=== PATIENT | female | born 1955 | race Caucasian/White ===

== ENCOUNTER 2017-03-13 12:05 | Inpatient (IN) | payer OTHER, MEDICAID ==
[~2017-03-13] VITALS: Ht 157.5 cm; Wt 77.4 kg
[2017-03-13 13:25] LABS: Basophils # (auto) 0.1 uL; Basophils % (auto) 0.5 % (0.0-2.0); CONDITION Y; Eosinophils # (auto) 0 uL; Hematocrit 41.3 % (36.0-46.0); Hemoglobin 14.2 g/dL (12.2-16.2); Lymphocytes # (auto) 1.2 uL; Lymphocytes % (auto) 7.9 % (10.0-50.0); Mean Corpuscular Hemoglobin 32.9 pg (28.0-32.0); Mean Corpuscular Hgb Conc. 34.3 g/dL (32.0-36.0); Mean Corpuscular Volume 95.8 fL (80.0-100.0); Mean Platelet Volume 8.8 fL (7.4-10.4); Monocytes # (auto) 0.6 uL; Monocytes % (auto) 3.8 % (0.0-12.0); Neutrophils # (auto) 13.4 uL; Neutrophils % (auto) 87.8 % (37.0-80.0); Platelet Count (auto) 245 10^3/uL (140-450); Red Cell Distribution Width 13.7 % (11.6-16.0); White Blood Cell 15.3 10^3/uL (4.4-10.8)
[2017-03-13] MEDS ORDERED: ACETAMINOPHEN 325 MG TAB PO PRN (13:30)
[2017-03-13] MEDS ORDERED: MORPHINE SULF INJ 2 MG/ML SYRINGE 1ML IV PRN (13:30)
[2017-03-13] MEDS ORDERED: ONDANSETRON HCL 4 MG/2 ML VIAL IV PRN (13:30)
[2017-03-13] MEDS ORDERED: ALBUTEROL SULF 2.5 MG/0.5ML(0.5%) NEB SOLN NEB PRN (13:30)
[2017-03-13] MEDS ORDERED: IPRATROPIUM BROM 0.5 MG/2.5ML INH SOL NEB PRN (13:30)
[2017-03-13] MEDS ORDERED: NITROGLYCERIN 0.4 MG SL TAB SL PRN (13:30)
[2017-03-13 13:46] LABS: Albumin 3.1 g/dL (3.4-5.0); Anion Gap 7 (5-15); Aspartate Aminotransferase 9 U/L (15-37); BUN/Creatinine Ratio 15.9; Blood Urea Nitrogen 10 mg/dL (7-18); Calcium 8.3 mg/dL (8.5-10.1); Carbon Dioxide 28 mmol/L (21-32); Chloride 108 mmol/L (98-107); GFR African American 124 mL/min; GFR Non-African American 102 mL/min; Glucose 83 mg/dL (74-106); Potassium 4.1 mmol/L (3.5-5.1); Sodium 143 mmol/L (136-145)
[2017-03-13 13:50] LABS: Alkaline Phosphatase 105 U/L (45-117); Bilirubin, Total 0.4 mg/dL (0.2-1.0); Total Protein 6.6 g/dL (6.4-8.2)
[2017-03-13 14:06] LABS: INR 0.89 (0.9-1.15); Partial Thromboplastin Time 22.1 sec (22.64-33.71); Prothrombin Time 9.7 sec (9.37-12.3)
[2017-03-13] MEDS: ENOXAPARIN SOD 100 MG/1 ML SYRINGE SC SCH ×2 (14:18→21:32)
[2017-03-13] MEDS ORDERED: BACL20TA PO (14:44)
[2017-03-13] MEDS ORDERED: TIZA4CAP5 PO (14:44)
[2017-03-13] MEDS ORDERED: PRE5T PO (14:44)
[2017-03-13] MEDS ORDERED: OXYB15TA12 PO (14:44)
[2017-03-13] MEDS ORDERED: NAPR-223 PO (14:44)
[2017-03-13] MEDS ORDERED: TRAM50TA2 PO (14:44)
[2017-03-13] MEDS ORDERED: VENL75TA PO (14:44)
[2017-03-13] MEDS ORDERED: MELO-85 PO (14:44)
[2017-03-13] MEDS ORDERED: GABA-339 PO (14:44)
[2017-03-13 15:06] VITALS: BP 150/91
[2017-03-13] MEDS: MORPHINE SULF INJ 2 MG/ML SYRINGE 1ML IV PRN (16:18)
[2017-03-13] MEDS ORDERED: BACL10TA PO (16:28)
[2017-03-13] MEDS ORDERED: traMADol HCL 50 MG TAB PO PRN (16:30)
[2017-03-13] MEDS ORDERED: WARFARIN SODIUM 10 MG TAB PO ONE (17:00)
[2017-03-13 17:15] VITALS: BP 123/76
[2017-03-13] MEDS: NAPROXEN 500 MG TAB PO SCH (18:00)
[2017-03-13] MEDS: OXYBUTYNIN CHL 5 MG TAB PO SCH ×2 (18:19→21:31)
[2017-03-13] MEDS: predniSONE 20 MG TAB PO SCH (21:31)
[2017-03-13] MEDS: GABAPENTIN 300 MG CAP PO SCH (21:32)
[2017-03-13] MEDS: TIZANIDINE 4 MG PO SCH ×2 (21:32→22:00)
[2017-03-13] MEDS: VENLAFAXINE HCL 37.5MG TABLET PO SCH (21:35)
[2017-03-13 22:00] VITALS: BP 99/71
[2017-03-14] MEDS: MORPHINE SULF INJ 2 MG/ML SYRINGE 1ML IV PRN (00:15)
[2017-03-14 05:00] VITALS: BP 111/70
[2017-03-14] MEDS: TIZANIDINE 4 MG PO SCH ×3 (06:00→14:00)
[2017-03-14] MEDS: OXYBUTYNIN CHL 5 MG TAB PO SCH ×2 (06:11→12:19)
[2017-03-14] MEDS: GABAPENTIN 300 MG CAP PO SCH ×2 (06:11→14:00)
[2017-03-14 06:40] LABS: Basophils # (auto) 0 uL; Basophils % (auto) 0.2 % (0.0-2.0); CONDITION Y; Eosinophils # (auto) 0 uL; Eosinophils % (auto) 0.1 % (0.0-7.0); Hematocrit 41.1 % (36.0-46.0); Hemoglobin 14.1 g/dL (12.2-16.2); Lymphocytes # (auto) 1.3 uL; Lymphocytes % (auto) 12.9 % (10.0-50.0); Mean Corpuscular Hgb Conc. 34.2 g/dL (32.0-36.0); Mean Corpuscular Volume 96.4 fL (80.0-100.0); Mean Platelet Volume 9.1 fL (7.4-10.4); Monocytes # (auto) 0.5 uL; Monocytes % (auto) 4.6 % (0.0-12.0); Neutrophils # (auto) 8.4 uL; Neutrophils % (auto) 82.2 % (37.0-80.0); Platelet Count (auto) 232 10^3/uL (140-450); White Blood Cell 10.2 10^3/uL (4.4-10.8)
[2017-03-14 06:57] LABS: INR 1.04 (0.9-1.15); Partial Thromboplastin Time 27.8 sec (22.64-33.71); Prothrombin Time 11.3 sec (9.37-12.3)
[2017-03-14 07:00] LABS: BUN/Creatinine Ratio 17.5; Calcium 9.1 mg/dL (8.5-10.1); Magnesium 2.9 mg/dL (1.6-2.6)
[2017-03-14] MEDS: NAPROXEN 500 MG TAB PO SCH (08:30)
[2017-03-14 09:00] VITALS: BP 122/75
[2017-03-14] MEDS ORDERED: MELOXICAM 7.5MG PO SCH ×2 (10:00)
[2017-03-14] MEDS: VENLAFAXINE HCL 37.5MG TABLET PO SCH (10:33)
[2017-03-14] MEDS: ENOXAPARIN SOD 100 MG/1 ML SYRINGE SC SCH (10:33)
[2017-03-14] MEDS: predniSONE 20 MG TAB PO SCH (10:33)
[2017-03-14] MEDS ORDERED: APIXABAN 5 MG TAB PO ONE (11:15)
[2017-03-14 13:00] VITALS: BP 120/66
[2017-03-14] MEDS ORDERED: WARFARIN SODIUM 2.5 MG TAB PO ONE (17:00)
[2017-03-14] MEDS ORDERED: APIXABAN 5 MG TAB PO SCH (22:00)
== END 2017-03-14 16:20 | disposition home or self-care (01) | DRG 175 ==
LOC: ER 12:05 → TELE 12:06 → TELE-E-ADS 15:29 → TELE-WESTW 16:53
PROVIDERS: ADMIT Internal Medicine; ATTEND Internal Medicine
DX: I26.99 Other pulmonary embolism without acute cor pulmonale (principal); G93.41 Metabolic encephalopathy; E44.1 Mild protein-calorie malnutrition; I50.9 Heart failure, unspecified; N39.0 Urinary tract infection, site not specified; F17.210 Nicotine dependence, cigarettes, uncomplicated; Z68.31 Body mass index [BMI] 31.0-31.9, adult; G89.29 Other chronic pain; I70.0 Atherosclerosis of aorta; J44.9 Chronic obstructive pulmonary disease, unspecified; M54.5 Low back pain; M54.2 Cervicalgia; M54.18 Radiculopathy, sacral and sacrococcygeal region; R29.6 Repeated falls; Z79.899 Other long term (current) drug therapy; Z86.711 Personal history of pulmonary embolism; Z86.718 Personal history of other venous thrombosis and embolism
CPT/HCPCS: 36415; 71020; 80048; 80053; 83735; 84484; 85025; 85379; 85610; 85730; 87081; 93005; 93970; 94640; 94761; 95819; 97163